=== PATIENT | male | born 1975 | race Caucasian/White ===

== ENCOUNTER 2018-02-04 20:11 | Emergency (ER) | payer OTHER ==
[2018-02-04 20:22] VITALS: BP 132/78
--- NOTE | 2018-02-04 21:10 | UC ---
Prakash Mcdonough Natalie, scribed for Maged Akbar MD on 02/04/18 at 2044 . Skin Complaint HPI - HPI Summary HPI Summary: The pt is a 42 y/o M presenting to [facility] c/o mildly itchy erythematous, bumpy rash all over body starting ten days ago worsening in the last two days. The rash started on his right hand on middle finger with wart-like protrusion that broke open with fluid. It has since spread to his arms, legs, torso, and neck. He has treated the rash with Compound W TIME SIGNAL WIRER to no relief. Pt additionally c/o sore throat for three days. He denies other cold symptoms and SOB. - History of Current Complaint Chief Complaint: UCSkin Time Seen by Provider: 02/04/18 20:30 Stated Complaint: RASH ALL OVER Hx Obtained From: Patient Onset/Duration: Sudden Onset - starting 10 days ago, Lasting Days, Still Present , Worse Since - the last two days Skin Exposure Onset/Duration: Days Ago Timing: Constant Onset Severity: Moderate Current Severity: Moderate Pain Intensity: 0 Pain Scale Used: 0-10 Numeric Location: Other - arms, legs, abdomen, neck Aggravating Factor(s): Nothing Alleviating Factor(s): Nothing Associated Signs & Symptoms: Negative: Difficulty Breathing, Fever - Allergy/Home Medications Allergies/Adverse Reactions: Allergies Allergy/AdvReac Type Severity Reaction Status Date / Time amoxicillin [From Augmentin] Allergy Severe Itching, Verified 02/04/18 20:23 RASH clavulanic acid Allergy Severe Itching, Verified 02/04/18 20:23 [From Augmentin] RASH ENVIRONMENTAL ALLERGIES Allergy Mild Runny Nose Uncoded 02/04/18 20:23 Home Medications: Home Medications Azelastine 0.15% NASAL(NF) [Astepro 0.15% NASAL (NF)] 02/04/18 [History] Triamcinolone Topical* PRN 02/04/18 [History] diPHENhydraMINE PO* [Benadryl PO 25 MG TAB*] 25 mg PO ONCE PRN 02/04/18 [ History Confirmed 02/04/18] Review of Systems Constitutional: Other - NEGATIVE: fever Skin: Rash - all over body ENT: Sore Throat All Other Systems Reviewed And Are Negative: Yes PMH/Surg Hx/FS Hx/Imm Hx - Surgical History Surgical History: Yes Surgery Procedure, Year, and Place: CYST REMOVED FROM LT KNEE. VASECTOMY. DISCECTOMY L4-L5-10/2014, L5-S1 DISCECTOMY 08/2016 - Family History Known Family History: Negative: Cardiac Disease, Diabetes - Social History Alcohol Use: Occasionally Alcohol Amount: 4-5 DRINKS A WEEK Substance Use Type: None Smoking Status (MU): Never Smoked Tobacco - Immunization History Most Recent Influenza Vaccination: none Most Recent Tetanus Shot: unknown Most Recent Pneumonia Vaccination: never Physical Exam - Summary Physical Exam Summary: General: well-appearing, no pain distress Skin: warm, color reflects adequate perfusion, dry, erythematous diffused 1 cm raised rash on neck, torso, arms, and legs Head: normal Eyes: EOMI, NIMA ENT: normal Neck: supple, nontender Respiratory: CTA, breath sounds present Cardiovascular: RRR Abdomen: soft, nontender Bowel: present Musculoskeletal: normal, strength/ROM intact Neurological: normal, sensory/motor intact, A&O x3 Psychological: affect/mood appropriate Triage Information Reviewed: Yes Vital Signs: Initial Vital Signs Temp 97.5 F 02/04/18 20:18 Pulse 76 02/04/18 20:18 Resp 16 02/04/18 20:18 BP 132/78 02/04/18 20:18 Pulse Ox 99 02/04/18 20:18 Vital Signs Reviewed: Yes Course/Dx - Course Course Of Treatment: Medications reviewed. Allergies noted. PROBABLE ALLERGIC RASH. NO FEVER, FEELS WELL. WILL TREAT WITH PREDNISONE. THE RIGHT MIDDLE FINGER HAS A SCAB WHERE THE PATIENT HAS BEEN USING COMPUND W FOR A WART REMOVAL. THE RASH STARTED THERE. WILL TREAT WITH CLINDAMCIN IN CASE THE RASH HAS AN INFECTIOUS ORIGIN. F/U PMD; REEVAL IF WORSE. - Diagnoses Provider Diagnoses: RASH Discharge - Discharge Plan Condition: Stable Disposition: HOME Prescriptions: Clindamycin Cap(NF) [Clindamycin Cap 300 mg Cap(NF)] 300 mg PO TID #21 cap predniSONE TAB* [Deltasone TAB*] 40 mg PO DAILY #10 tab Patient Education Materials: Acute Rash (ED) Referrals: Rojas Page MD [Primary Care Provider] - Additional Instructions: FOLLOW UP WITH YOUR DOCTOR. GET RECHECKED FOR ANY WORSENING OF YOUR CONDITION; FEVER, YOU FEEL ILL OR QUESTIONS OR CONCERNS. YOUR BLOOD PRESSURE WAS ELEVATED TODAY; FOLLOW UP WITH YOUR PRIMARY CARE DOCTOR WITHIN ONE WEEK. The documentation as recorded by the Prakash giang Natalie accurately reflects the service I personally performed and the decisions made by me, Maged Akbar MD.
== END 2018-02-04 20:46 | disposition home or self-care (01) ==
LOC: UCEAST 20:11
DX: R21 Rash and other nonspecific skin eruption (principal); Z88.1 Allergy status to other antibiotic agents; Z88.0 Allergy status to penicillin; Z91.048 Other nonmedicinal substance allergy status
CPT/HCPCS: 99212; G0463